=== PATIENT | male | born 1990 | race Asian ===

== ENCOUNTER 2018-11-23 21:31 | Emergency (ER) | payer OTHER ==
[~2018-11-23] VITALS: Ht 172.7 cm; Wt 74.8 kg
[2018-11-23 21:34] VITALS: BP 143/101; Ht 172.7 cm; Wt 74.8 kg
== END 2018-11-23 22:32 | disposition other institution (70) ==
LOC: ED 21:31
DX: Z02.89 Encounter for other administrative examinations (principal)